=== PATIENT | female | born 1965 | race Caucasian/White ===

== ENCOUNTER 2018-06-17 15:23 | Emergency (ER) | payer OTHER ==
[~2018-06-17] VITALS: Ht 157.5 cm; Wt 66.8 kg
[~2018-06-17 15:23] MED LIST: BENA10TA4 PO; SIMV40TA3 PO
[2018-06-17 15:25] VITALS: BP 158/99; PULSE 88; RESP 18; Ht 157.5 cm; Wt 66.8 kg
== END 2018-06-17 18:05 | disposition left against medical advice (07) ==
LOC: FTE 15:23 → E/R 18:05
DX: Z53.21 Procedure and treatment not carried out due to patient leaving prior to being seen by health care provider (principal)